=== PATIENT | female | born 1955 | race Hispanic/Latino ===

== ENCOUNTER 2016-10-28 11:32 | Outpatient (CLI) | payer BC | END 2016-10-28 11:33 | disposition home or self-care (01) | LOC: LABBT 11:32 | PROVIDERS: ATTEND Neurological Surgery | DX: Z01.818 Encounter for other preprocedural examination (principal); G56.01 Carpal tunnel syndrome, right upper limb ==

== ENCOUNTER 2016-11-03 10:49 | Day surgery (SDC) | payer BC ==
[2016-10-28 11:53] VITALS: BMI 21.7
--- NOTE | 2016-11-03 10:07 | HP ---
HISTORY OF PRESENT ILLNESS: Ms. Frost a very pleasant 60-year-old woman who presents for evaluation of what appears to be bilateral carpal tunnel syndrome, right much more significantly than left, bu t she does also have components of her cervical radicular pain for which she is receiving injections for with good relief. She is here today to discuss possibly treating her carpal tunnel syndrome mathew rgically if possible. PAST MEDICAL HISTORY: Significant for no major medical problems. CURRENT MEDICATIONS: Aspirin and vitamin D. ALLERGIES: ZOCOR and CRESTOR. PAST SURGICAL HISTORY: Hysterectomy and oophorectomy. PHYSICAL EXAMINATION: She is alert and oriented x3. She has normal strength bilaterally in her upp er extremities. She does have some sensory disturbance to the first, second, and third digits of th e right and left hand, right much more significant than the left. ASSESSMENT: Carpal tunnel syndrome bilaterally. PLAN: Dr. Goodwin met with the patient, reviewed both imaging and EMG studies and ultimately recommen ded a right carpal tunnel release. He explained to the patient the risks, benefits, and alternative s to the procedure. The patient expressed understanding and would like to move forward with surgery as discussed. I do believe the patient is mentally competent and capable of making medical decisio ns for herself and we will move forward with surgery as planned.
[2016-11-03] MEDS ORDERED: Lidocaine 1% w/Epinephrine 1:200K 30 ML VIAL ONE (11:47)
[2016-11-03] MEDS ORDERED: Fentanyl 100 MCG/2 ML VIAL ONE (11:53)
[2016-11-03] MEDS ORDERED: Midazolam HCl 2 mg/2 ml Vial ONE (11:53)
[2016-11-03] MEDS ORDERED: Propofol 500 MG/50 ML VIAL ONE (12:03)
--- NOTE | 2016-11-07 11:12 | OP ---
DATE OF PROCEDURE: 11/03/2016 SURGEON: Kev Goodwin M.D. HEAD LOFT WORKER: Santiago Camp PA-C. INDICATION: Pain. DIAGNOSIS: Right carpal tunnel syndrome. PROCEDURE: Right carpal tunnel release. ANESTHESIA: Local and mac. PROCEDURE IN DETAIL: The patient was brought to the operating room and placed under general anesth esia. Her arm was extended perpendicular to her body and prepped and draped up to the level of the axilla. A linear incision was planned across the crease in the wrist in line with the long axis of the fourth digit on the hand. After infiltrating the area with lidocaine an incision was created. A self-retaining retractor was placed. The carpal tunnel ligament was identified and subsequently i ncised. The incision was extended in both proximal and distal directions until the ulnar to the car pal tunnel where decompressed. The wound was then irrigated. Hemostasis was maintained throughout. The incision was then closed in a single layer technique.
== END 2016-11-03 13:47 | disposition home or self-care (01) ==
LOC: SDC 10:49
PROVIDERS: ATTEND Neurological Surgery
PROC: 01N50ZZ Release Median Nerve, Open Approach (ICD-10-PCS; principal; 2016-11-03)
DX: G56.01 Carpal tunnel syndrome, right upper limb (principal); E78.5 Hyperlipidemia, unspecified; F32.9 Major depressive disorder, single episode, unspecified; Z88.8 Allergy status to other drugs, medicaments and biological substances; Z79.82 Long term (current) use of aspirin; Z79.899 Other long term (current) drug therapy; Z90.710 Acquired absence of both cervix and uterus; Z90.722 Acquired absence of ovaries, bilateral
CPT/HCPCS: J2250; J2704; J3010

== ENCOUNTER 2017-05-19 05:50 | Day surgery (SDC) | payer BC ==
[2017-05-18 09:31] VITALS: BMI 21.7
--- NOTE | 2017-05-18 23:23 | HP ---
HISTORY OF PRESENT ILLNESS: Ms. Frost is a very pleasant 61-year-old woman who is known to us for pr evious evaluation of both carpal tunnel syndrome and cervical neck complaints. She presents now [facility] 3 months out from carpal tunnel surgery, still dealing with fair degree of right upper extremity arm pain, it is mostly a C8 fashion. She has an MRI that reveals a large right-sided disk herniation at C7-T1 that would fit the symptoms, she has attempted injections and other treatments and has unfo rtunately not had a great deal of significant improvement and at this time hopes to move forward with more definitive surgical management. PAST MEDICAL HISTORY: Significant for no major issue. CURRENT MEDICATIONS: Aspirin and vitamin D. ALLERGIES: ZOCOR and CRESTOR. PAST SURGICAL HISTORY: Hysterectomy, oophorectomy, and carpal tunnel release of the right hand. PHYSICAL EXAMINATION: GENERAL: The patient is alert and oriented x3. NEUROLOGIC: Gait is normal, no ataxia. Upper extremity motor exam is normal. ASSESSMENT: Cervical radiculopathy, disk herniation. PLAN: Dr. Goodwin met with the patient, reviewed imaging and advocated for C7-T1 ACDF. He explained t o the patient the risks, benefits, and alternatives to the procedure. The patient expressed understa nding and would like to move forward with surgery as discussed. I do believe the patient is mentally competent and capable of making medical decisions for herself and we will move forward with surgery as planned. Reynaldo Camp PA-C, dictating under Kev Goodwin M.D.
[2017-05-19] MEDS ORDERED: CEFAZOLIN/Water 2 GM/20 ML SYRINGE ONE ×2 (05:57→10:33)
[2017-05-19] MEDS ORDERED: Thrombin 5000 UNITS/5 ML VIAL ONE (06:16)
[2017-05-19] MEDS ORDERED: HYDROmorphone 0.5 MG/0.5 ML SYRINGE ONE ×2 (06:28→07:44)
[2017-05-19] MEDS ORDERED: Midazolam HCl 2 mg/2 ml Vial ONE (06:46)
[2017-05-19] MEDS ORDERED: Promethazine HCl 25 MG/ML VIAL ONE (08:54)
[2017-05-19] MEDS ORDERED: Dexamethasone 20 MG/5 ML VIAL ONE (15:35)
[2017-05-19] MEDS ORDERED: PROPOFOL 200 MG/20 ML VIAL ONE (15:35)
[2017-05-19] MEDS ORDERED: Ondansetron HCl/PF 4 MG/2 ML Vial ONE (15:35)
[2017-05-19] MEDS ORDERED: Glycopyrrolate 0.2 MG/ML 5 ML SYRINGE ONE (15:35)
[2017-05-19] MEDS ORDERED: Lidocaine 1% PF 5 ML VIAL ONE (15:35)
[2017-05-19] MEDS ORDERED: ePHEDrine/0.9% NaCl/PF SYRINGE 50 mg/10 ml ONE (15:35)
--- NOTE | 2017-05-22 11:57 | OP ---
DATE OF PROCEDURE: 05/19/2017 SURGEON: Kev Goodwin M.D. COOKIE BREAKER: Reynaldo Camp PA-C. INDICATION: Pain. DIAGNOSIS: Cervical radiculopathy. PROCEDURE PERFORMED: C7-T1 anterior cervical diskectomy and fusion. ANESTHESIA: General. TECHNIQUE: The patient was brought into the operating room and placed under general anesthesia. She was placed on the table in supine position. A transverse incision was planned over the lateral aspe ct of the neck on the right. After prepping and draping and after an appropriate operative pause, th e incision was created. Soft tissues were swept away from midline. The underlying platysma muscles identified and incised. A blunt tissue plane anterior to the sternocleidomastoid muscle was used to gain access to the prevertebral space. After identifying the appropriate level with C-arm fluoroscop y, an annulotomy was performed in the C7-T1 disk space where all disk material as well as anterior an d posterior osteophytes were removed. After complete decompression, a 7 mm lordotic PEEK cage was pl aced within the interbody space. An anterior cervical plate was then fashioned in front of the spine and secured with a total of 4 fixed screws. Midline and lateral structures were free of significant trauma. The wound was irrigated. Hemostasis was maintained throughout. The wound was then closed in anatomic layers and a pressure dressing was applied. There were no known procedural complications .
== END 2017-05-19 10:53 | disposition home or self-care (01) ==
LOC: SDC 05:50
PROVIDERS: ATTEND Neurological Surgery
PROC: 0RT50ZZ Resection of Cervicothoracic Vertebral Disc, Open Approach (ICD-10-PCS; principal; 2017-05-19)
PROC: 0RG10A0 Fusion of Cervical Vertebral Joint with Interbody Fusion Device, Anterior Approach, Anterior Column, Open Approach (ICD-10-PCS; principal; 2017-05-19)
DX: M50.13 Cervical disc disorder with radiculopathy, cervicothoracic region (principal); Z79.82 Long term (current) use of aspirin; Z79.899 Other long term (current) drug therapy; Z88.8 Allergy status to other drugs, medicaments and biological substances
CPT/HCPCS: 76001; 96374; C1713; C1776; J1100; J1170; J2001; J2250; J2405; J2550; J2704

== ENCOUNTER 2017-05-27 07:28 | Emergency (ER) | payer BC | END 2017-05-27 08:22 | disposition home or self-care (01) | LOC: ERS 07:28 | DX: M96.842 Postprocedural seroma of a musculoskeletal structure following a musculoskeletal system procedure (principal); L53.9 Erythematous condition, unspecified; E78.5 Hyperlipidemia, unspecified; Z79.82 Long term (current) use of aspirin | CPT/HCPCS: 99283 ==

== ENCOUNTER 2017-06-01 11:19 | Outpatient (CLI) | payer BC ==
--- NOTE | 2017-06-01 13:57 | CT ---
POSTCONTRAST SOFT TISSUE NECK CT: Date: 06/01/17 HISTORY: ACDF on 05/19/17. Postop infection. Patient is on antibiotics. Evaluate for residual infection. COMPARISON: None. TECHNIQUE: Postcontrast soft tissue neck CT is performed in the axial plane. Reformatted images are submitted fo r interpretation. FINDINGS: Visualized brain parenchyma is unremarkable. Visualized orbits are also unremarkable. Aerodigestive t ract is patent. No mucosal abnormality. Limited evaluation of the oral cavity by the presence of dent al amalgam artifact. No obvious masses in the oral cavity. Grossly, the midline fatty raphe of the to ngue appears to be present. Epiglottis has a normal caliber. Preepiglottic fat is preserved. Symmetric attenuation of the parotid and submandibular glands. Grossly, the great vessels of the neck are patent. There is no prevertebral soft tissue swelling. Cervical spine vertebral body height is maintained. No evidence of fracture. There is anterior fusion plate with transvertebral body screw at C7-T1. No per ihardware lucency. Disc prosthesis is present. Evaluation of the contents of the central spinal canal and neural foramina are limited by technique. No high grade central canal stenosis. No high grade foraminal narrowing. Evaluation is limited by lise hnique. There is mild asymmetric soft tissue prominence involving the anterior right neck soft tissues. This soft tissue prominence does appear to involve the medial aspect of the right sternocleidomastoid mus yessica and the overlying subcutaneous fat. A discrete drainable abscess is not appreciated. Upper medi astinum and lung apices are unremarkable. No atlanto-occipital dissociation. Lateral masses of C1 and C2, as well as the interarticular facets have appropriate alignment. IMPRESSION: 1. Cervical fusion hardware at C7-T1. No obvious perihardware lucency. No evidence of an epidural ab scess. No significant prevertebral fluid. 2. Asymmetric fullness along the inferior medial aspect of the right sternocleidomastoid muscle. Fi ndings may represent inflammatory/infectious change with phlegmon. An obvious drainable abscess is n ot appreciated. POS: [facility]
== END 2017-06-01 11:20 | disposition home or self-care (01) ==
LOC: TBSIIMAG 11:19
PROVIDERS: ATTEND Neurological Surgery
DX: T81.4XXA Infection following a procedure, initial encounter (principal); Z98.1 Arthrodesis status
CPT/HCPCS: 70491; 82565

== ENCOUNTER 2017-08-17 09:06 | Outpatient (CLI) | payer BC | END 2017-08-17 09:07 | disposition home or self-care (01) | LOC: BICMAMMO 09:06 | PROVIDERS: ATTEND Internal Medicine | DX: Z12.31 Encounter for screening mammogram for malignant neoplasm of breast (principal); Z80.3 Family history of malignant neoplasm of breast | CPT/HCPCS: 77063; 77067 ==

== ENCOUNTER 2018-11-07 16:00 | Outpatient (CLI) | payer BC ==
--- NOTE | 2018-11-07 16:28 | MMO ---
Bilateral MAMMO Bilat Screen [facility]. CLINICAL HISTORY: Patient is 62 years old and is seen for screening. The patient has the following family history of breast cancer: mother and sister. The patient has no personal history of cancer. VIEWS: The views performed were: bilateral craniocaudal with tomosynthesis and bilateral mediolateral oblique with tomosynthesis. FILMS COMPARED: The present examination has been compared to prior imaging studies performed at 08/18/2016 and 08/17/2017. This study has been interpreted with the assistance of computer-aided detection. MAMMOGRAM FINDINGS: The breasts are heterogeneously dense, which could obscure a lesion on mammography. There are no suspicious masses, suspicious calcifications, or new areas of architectural distortion. IMPRESSION: THERE IS NO MAMMOGRAPHIC EVIDENCE OF MALIGNANCY. A ROUTINE FOLLOW-UP MAMMOGRAM IN 1 YEAR IS RECOMMENDED. THE RESULTS OF THIS EXAM WERE SENT TO THE PATIENT. ACR BI-RADS Category 1 - Negative MAMMOGRAPHY NOTE: 1. A negative mammogram report should not delay a biopsy if a dominant of clinically suspicious mass is present. 2. Approximately 10% to 15% of breast cancers are not detected by mammography. 3. Adenosis and dense breasts may obscure an underlying neoplasm. Reported by: ARNOLDO WANG MD Electonically Signed: [id number]
== END 2018-11-07 16:01 | disposition home or self-care (01) ==
LOC: BICMAMMO 16:00
PROVIDERS: ATTEND Internal Medicine
DX: Z12.31 Encounter for screening mammogram for malignant neoplasm of breast (principal)
CPT/HCPCS: 77063; 77067

== ENCOUNTER 2020-01-03 10:01 | Outpatient (CLI) | payer BC ==
--- NOTE | 2020-01-03 13:36 | CT ---
CT ABDOMEN AND PELVIS WITH AND WITHOUT IV CONTRAST: 01/03/20 Postcontrast images performed in portal venous and delayed venous phase following urogram protocol. INDICATIONS: Gross hematuria. FINDINGS: review of the urinary tract on the noncontrast images shows no evidence of urinary tract calculus. No hydronephrosis. On the postcontrast images, both kidneys show symmetric enhancement. There is a low density lesion in the posterior left renal cortex measuring approximately 7 mm. this exhibits fat density on all seque nces and suggests a small angiomyolipoma. Kidneys otherwise unremarkable. No other evidence of renal mass lesion. On the delayed sequence, there is secretion into the collecting structures. The collecting structures and urinary bladder appear unremarkable. The lung bases are clear. The liver, spleen, and pancreas appear unremarkable. Stomach and duodenum unremarkable. The inferior vena cava is rather prominent especially in the hepatic portion which may represent mild congestion. The small bowel loops are normal caliber. Moderate volume stool throughout the colon. Aorta normal ca liber. No adenopathy or free fluid. Osseous structures unremarkable. Degenerative disc changes are se en in the lumbar spine prominent at L5-S1. IMPRESSION: 1. 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 2. Urinary tract otherwise unremarkable. No acute intra-abdomnial process. POS: OFF
[2020-01-03] MEDS ORDERED: Iopamidol-370 76% 500 ML 1 ML ONE (15:12)
== END 2020-01-03 10:02 | disposition home or self-care (01) ==
LOC: BICCT 10:01
PROVIDERS: ATTEND Urology
DX: R10.30 Lower abdominal pain, unspecified (principal); R31.0 Gross hematuria; R35.0 Frequency of micturition; D17.71 Benign lipomatous neoplasm of kidney
CPT/HCPCS: 74178; 82565; Q9967

== ENCOUNTER 2020-06-01 08:52 | Outpatient (CLI) | payer BC | END 2020-06-01 08:53 | disposition home or self-care (01) | LOC: BICMAMMO 08:52 | PROVIDERS: ATTEND Internal Medicine | DX: Z12.31 Encounter for screening mammogram for malignant neoplasm of breast (principal); Z80.3 Family history of malignant neoplasm of breast | CPT/HCPCS: 77063; 77067 ==

== ENCOUNTER 2021-09-21 06:17 | Day surgery (SDC) | payer BC ==
[2021-09-16 16:22] VITALS: BMI 21.9
[2021-09-21] MEDS ORDERED: fentaNYL Citrate/PF 100 MCG/2 ML SYRINGE ONE (06:36)
[2021-09-21] MEDS ORDERED: Midazolam HCl 2 mg/2 ml Vial ONE (06:36)
[2021-09-21] MEDS ORDERED: PROPOFOL 20 ML ONE (06:36)
[2021-09-21] MEDS ORDERED: Cyclopentolate 1% Opth Drop 2 ML BOT ONE (06:48)
[2021-09-21] MEDS ORDERED: Phenylephrine 2.5% Ophth Soln 5 ML BOT ONE (06:48)
[2021-09-21] MEDS ORDERED: Lidocaine 4% PF 5 ML AMP ONE (07:52)
[2021-09-21] MEDS ORDERED: CEFAZOLIN 1 GM VIAL ONE (07:52)
[2021-09-21] MEDS ORDERED: Bupivacaine 0.75% 10 ML VIAL ONE (07:52)
[2021-09-21] MEDS ORDERED: Lidocaine 1% PF 5 ML VIAL ONE (07:52)
[2021-09-21] MEDS ORDERED: Maxitrol 0.1% Opth Oint 3.5 GM TUBE ONE (07:52)
[2021-09-21] MEDS ORDERED: Triamcinolone 40 MG/ML VIAL ONE (07:52)
[2021-09-21] MEDS ORDERED: EPINEPHrine 0.3 MG in Ophthalmic Irrigation Solution 500 ML IRR SCH (10:15)
== END 2021-09-21 08:53 | disposition home or self-care (01) ==
LOC: SDC 06:17
PROVIDERS: ATTEND Ophthalmology Retina Specialist
PROC: 08T43ZZ Resection of Right Vitreous, Percutaneous Approach (ICD-10-PCS; principal; 2021-09-21)
DX: H43.391 Other vitreous opacities, right eye (principal); Z88.8 Allergy status to other drugs, medicaments and biological substances
CPT/HCPCS: J0171; J0690; J2250; J2704; J3301; J3490

== ENCOUNTER 2022-05-19 07:37 | Outpatient (CLI) | payer BC | END 2022-05-19 07:38 | disposition home or self-care (01) | LOC: ULT 07:37 | PROVIDERS: ATTEND Urology | DX: D17.71 Benign lipomatous neoplasm of kidney (principal) | CPT/HCPCS: 76770 ==

== ENCOUNTER 2022-09-14 08:00 | Outpatient (CLI) | payer BC | END 2022-09-14 08:01 | disposition home or self-care (01) | LOC: BICMAMMO 08:00 | PROVIDERS: ATTEND Internal Medicine | DX: Z12.31 Encounter for screening mammogram for malignant neoplasm of breast (principal); Z80.3 Family history of malignant neoplasm of breast | CPT/HCPCS: 77063; 77067 ==

== ENCOUNTER 2024-01-17 11:09 | Outpatient (CLI) | payer MEDICARE | END 2024-01-17 11:10 | disposition home or self-care (01) | LOC: BICMRI 11:09 | PROVIDERS: ATTEND Orthopaedic Surgery | DX: S46.011A Strain of muscle(s) and tendon(s) of the rotator cuff of right shoulder, initial encounter (principal); S96.811A Strain of other specified muscles and tendons at ankle and foot level, right foot, initial encounter; S43.431A Superior glenoid labrum lesion of right shoulder, initial encounter; M25.411 Effusion, right shoulder ==

== ENCOUNTER 2024-03-14 05:44 | Day surgery (SDC) | payer MEDICARE ==
[2024-03-07 10:58] VITALS: BMI 23.3
[2024-03-14] MEDS ORDERED: Lidocaine 1% MPF 2 ML VIAL ONE (06:13)
[2024-03-14] MEDS ORDERED: CEFAZOLIN 2 GM VIAL ONE (06:13)
[2024-03-14] MEDS ORDERED: Rocuronium Bromide 10 MG/ML (10ML VIAL) ONE (06:23)
[2024-03-14] MEDS ORDERED: PROPOFOL 40 ML ONE (06:23)
[2024-03-14] MEDS ORDERED: fentaNYL PF 100 MCG/2 ML SYRINGE ONE (06:23)
[2024-03-14] MEDS ORDERED: Midazolam HCl 2 mg/2 ml Vial ONE ×2 (06:23→06:26)
[2024-03-14] MEDS ORDERED: Lidocaine 1% (PF) 30 ML VIAL ONE ×2 (06:24→06:26)
[2024-03-14] MEDS ORDERED: EPINEPHrine 1 MG/ML VIAL ONE (06:24)
[2024-03-14] MEDS ORDERED: Ropivacaine 0.5% HCl/PF (150 MG/30 ML VIAL) ONE (06:26)
[2024-03-14] MEDS ORDERED: fentaNYL 50 mcg/mL 1 mL Vial ONE ×2 (06:26→06:32)
[2024-03-14] MEDS ORDERED: Ropivacaine 0.2% HCl/PF 20 ML ONE (06:27)
[2024-03-14] MEDS ORDERED: Dexamethasone 20 MG/5 ML VIAL ONE ×2 (07:43→10:49)
[2024-03-14] MEDS ORDERED: PHENYLEPHRINE-NS 100 MCG/ML 10 ML SYRINGE ONE ×2 (08:04→08:23)
[2024-03-14] MEDS ORDERED: SUGAMMADEX SODIUM 200 MG/2 ML VIAL ONE ×2 (09:11→11:40)
[2024-03-14] MEDS ORDERED: Ketorolac Tromethamine 30 MG (1 mL) VIAL ONE ×2 (09:13→11:44)
[2024-03-14] MEDS ORDERED: Ondansetron PF 4 MG/2 ML Vial ONE (09:13)
[2024-03-14] MEDS ORDERED: traMADol HCl 50 MG TAB PO PRN ×2 (09:15)
[2024-03-14] MEDS ORDERED: fentaNYL 50 mcg/mL 1 mL Vial SLOW IVP PRN (09:15)
[2024-03-14] MEDS ORDERED: Ropivacaine 0.2% 550 ML 550 ML NERVE BLCK SCH (09:15)
[2024-03-14] MEDS ORDERED: Promethazine HCl 25 MG/ML VIAL IM PRN (09:15)
[2024-03-14] MEDS ORDERED: Ondansetron PF 4 MG/2 ML Vial IVP PRN (09:15)
[2024-03-14] MEDS ORDERED: Zolpidem Tartrate 5 MG TAB PO PRN (09:15)
[2024-03-14] MEDS ORDERED: HYDROcodone/Acetaminophen 5/325 mg Tablet PO PRN ×2 (09:15)
[2024-03-14] MEDS ORDERED: Promethazine HCl 25 MG/ML VIAL ONE (09:58)
[2024-03-14] MEDS ORDERED: Dexmedetomidine 200 MCG/2 ML VIAL ONE (10:56)
== END 2024-03-14 13:58 | disposition home or self-care (01) ==
LOC: SDC 05:44
PROVIDERS: ATTEND Orthopaedic Surgery
PROC: 0LB14ZZ Excision of Right Shoulder Tendon, Percutaneous Endoscopic Approach (ICD-10-PCS; principal; 2024-03-14)
PROC: 0LS30ZZ Reposition Right Upper Arm Tendon, Open Approach (ICD-10-PCS; 2024-03-14)
DX: S46.011A Strain of muscle(s) and tendon(s) of the rotator cuff of right shoulder, initial encounter (principal); E78.5 Hyperlipidemia, unspecified; K21.9 Gastro-esophageal reflux disease without esophagitis; Z87.891 Personal history of nicotine dependence; Z90.710 Acquired absence of both cervix and uterus; Z90.89 Acquired absence of other organs; Z88.8 Allergy status to other drugs, medicaments and biological substances; Z79.899 Other long term (current) drug therapy; W19.XXXA Unspecified fall, initial encounter
CPT/HCPCS: 23430; 29823; 29827; A4306; C1713 ×3; J0171; J1100; J1885; J2405; J2550; J2704; J2795 ×3; J3010; J2250

== ENCOUNTER 2024-09-25 08:20 | Outpatient (CLI) | payer MEDICARE | END 2024-09-25 08:21 | disposition home or self-care (01) | LOC: ULT 08:20 | PROVIDERS: ATTEND Urology | DX: D17.71 Benign lipomatous neoplasm of kidney (principal); R31.0 Gross hematuria; R35.0 Frequency of micturition | CPT/HCPCS: 76770 ==

== ENCOUNTER 2025-02-11 06:09 | Day surgery (SDC) | payer MEDICARE ==
[2025-02-10 15:01] VITALS: BMI 23.3
[~2025-02-11 06:09] MED LIST: EPINEPHrine 0.3 MG in Ophthalmic Irrigation Solution 500 ML IRR SCH
[2025-02-11] MEDS ORDERED: Cyclopentolate 1% Opth Drop 2 ML BOT ONE (06:28)
[2025-02-11] MEDS ORDERED: PROPOFOL 20 ML ONE (07:02)
[2025-02-11] MEDS ORDERED: Lidocaine 4% PF 5 ML AMP ONE (07:54)
[2025-02-11] MEDS ORDERED: Maxitrol 0.1% Opth Oint 3.5 GM TUBE ONE (07:54)
[2025-02-11] MEDS ORDERED: CEFAZOLIN 1 GM VIAL ONE (07:54)
[2025-02-11] MEDS ORDERED: Lidocaine 1% PF 5 ML VIAL ONE (07:54)
== END 2025-02-11 08:45 | disposition home or self-care (01) ==
LOC: SDC 06:09
PROVIDERS: ATTEND Ophthalmology Retina Specialist
PROC: 08B53ZZ Excision of Left Vitreous, Percutaneous Approach (ICD-10-PCS; principal; 2025-02-11)
DX: H43.392 Other vitreous opacities, left eye (principal); Z90.710 Acquired absence of both cervix and uterus; Z90.89 Acquired absence of other organs; Z98.890 Other specified postprocedural states
CPT/HCPCS: 67036; J0166; J0690; J2003; J2250; J2704; J3010; J3301; J3490